=== PATIENT | male | born 1975 | race Caucasian/White ===

== ENCOUNTER 2017-01-07 22:01 | Emergency (ER) | payer OTHER ==
--- NOTE | ~2017-01-07 | ER ---
PATIENT'S NAME: LAWRENCE MCNAIR [facility] AGE: 41 Y [address] ROOM: [place] [address] LOCATION: [facility] ADMIT DATE: 01/07/2017 ER/Outpatient Report DISCHARGE DATE: 01/08/2017 FAMILY PHYSICIAN: PHYSICIAN, NO ATTENDING PHYSICIAN: Murphy Villanueva Admission date and time documented on the medical record. I saw the patient at 2215 hours. CHIEF COMPLAINT: Right flank upper quadrant abdominal pain with diarrhea. HISTORY OF PRESENT ILLNESS: The patient is a 41-year-old male over the past 24 hours has had pain in his right flank, right upper quadrant of the abdomen accompanied with some mild diarrhea. He has had 4 episodes of nonbloody, no nausea or vomiting, no back pain. No chest pain, shortness of breath. No lightheadedness, dizziness, syncope, or near syncope. No fall or trauma. No headache, eyes, ears, nose, throat, neck, or spine pain. No recent colds, coughs, flus, fever, chills, or sweats. No joint or muscle swelling, redness, or pain. No skin eruptions or rash. He does have a history of schizoaffective disorder or depression. He has had some past suicidal ideation. No endocrine problems or neuro changes. HOME MEDICATIONS: See attached medication list. ALLERGIES: NONE. SOCIAL HISTORY: The patient smokes 2 packs of cigarettes per day, nondrinker. PAST MEDICAL HISTORY: Tobacco abuse, hypertension, schizoaffective disorder, MRSA positive, depression, suicidal ideation, remote alcohol abuse. OPERATIONS: None. REVIEW OF SYSTEMS: All systems reviewed by me are negative with the exception of those discussed in the history of present illness. PHYSICAL EXAMINATION: VITAL SIGNS: Temperature 97.9, pulse 76, respirations 18, blood pressure PATIENT'S NAME: LAWRENCE MCNAIR [facility] AGE: 41 Y [address] ROOM: [place] [address] LOCATION: [facility] ADMIT DATE: 01/07/2017 ER/Outpatient Report DISCHARGE DATE: 01/08/2017 FAMILY PHYSICIAN: PHYSICIAN, NO ATTENDING PHYSICIAN: Murphy Villanueva 143/93, O2 saturation on room air is 94%. HEENT: Head: Normocephalic. Eyes, Ears, Nose, and Throat: Clear. NECK: No nuchal rigidity. No findings of adenopathy. No tenderness. SPINE: Negative. LUNGS: Clear. No rales, rhonchi, or wheezes. HEART: Regular. Pulses are palpable. No chest wall or ribcage pain to palpation. ABDOMEN: Tender in the right flank, right upper quadrant area. No true guarding or rigidity. No rebound tenderness. Active bowel tones. No organomegaly or abnormal masses palpable. No CVA tenderness. EXTREMITIES: Intact. NEUROVASCULAR: Intact. SKIN: Clear. No skin eruptions or rash. IMAGING DATA: Three abdominal x-rays show no perforation, obstruction, or acute lung infiltrate. We will review x-ray with the radiologist. LABORATORY DATA: CBC: White count was 10,900, 72 segs, 20 lymphs, 6 monos, 1 eosinophil. Hemoglobin was 14.9 with hematocrit of 45.1, platelet count is 178,000. CMS was normal except for an elevated blood sugar of 138. CRP was elevated at 5.82. Procalcitonin was normal at less than 0.5, lactate was 3.3. Urinalysis showed 2-5 whites, 2-5 reds, 0-2 epithelial cells, moderate bacteria with 1+ mucus. The patient was started on IV normal saline fluids given a liter here in the emergency department. I went ahead with a CT scan of the abdomen and pelvis with IV contrast. CT scan showed acute epiploic appendagitis, distal aspect of the right colon. No other abnormalities were noted. CT scan was read by Radiology, see dictated and transcribed report. IMPRESSION: 1. Right upper quadrant flank pain secondary to acute epiploic appendagitis. 2. Hypertension. 3. Tobacco abuse. 4. Schizoaffective disorder. PLAN: Discussion ensued with the patient concerning my findings and recommendations, he was discharged home. Fluids and diet as tolerated. Continue present home medications and care. [place] as needed for pain, Naprosyn 500 mg b.i.d. with food x10 days. No work until 01/12/2017. Follow up with personal physician as needed. The patient understands and agrees with treatment. PATIENT'S NAME: LAWRENCE MCNAIR [facility] AGE: 41 Y [address] ROOM: [place] [address] LOCATION: [facility] ADMIT DATE: 01/07/2017 ER/Outpatient Report DISCHARGE DATE: 01/08/2017 FAMILY PHYSICIAN: KEERTHI WILLETT ATTENDING PHYSICIAN: Murphy Villanueva MD TORIBIO ESQUEDA/modl /[id number] d: 01/08/17 0208 t: 01/08/17 1902, OUTPATIENT REPORT
[~2017-01-07 22:01] MED LIST: BYSTOLIC10 MG PO; CYMBALTA20 MG PO; CYMBALTA60 MG PO; DESYREL100 MG PO; HYZAAR 50-12.51 TAB PO; LATUDA120 MG PO; LATUDA80 MG PO; NICODERM/HABITR21 MG TRANS; NORVASC5 MG PO; PAXIL10 MG PO; VISTARIL25 MG PO
[2017-01-07 22:29] LABS: BILIRUBIN URINE NEGATIVE (NEGATIVE); BLOOD URINE 25 /UL (NEGATIVE); COLOR URINE YELLOW (YELLOW); GLUCOSE URINE NEGATIVE (NEGATIVE); KETONE URINE 5 mg/dL (NEGATIVE); LEUKOCYTES URINE 25 /UL (NEGATIVE); NITRITE URINE NEGATIVE (NEGATIVE); PROTEIN URINE 15 mg/dL (NEGATIVE); TURBIDITY URINE CLEAR (CLEAR); UROBILINOGEN URINE 1 mg/dL (NORMAL)
[2017-01-07 22:34] LABS: BASOPHIL % 0.2 %; EOSINOPHIL # 0.1 K/uL (0.0-0.5); EOSINOPHIL % 0.8 %; HEMATOCRIT 45.1 % (37.0-53.0); HEMOGLOBIN 14.9 g/dL (12.0-17.0); IMMATURE GRANULOCYTE # 0.1 K/uL (0.0-0.3); IMMATURE GRANULOCYTE % 0.5 %; LYMPHOCYTE # 2.2 K/uL (0.8-4.0); LYMPHOCYTE % 19.9 %; MCH 29.7 pg (27.0-34.0); MONOCYTE # 0.7 K/uL (0.0-1.0); MONOCYTE % 6.3 %; MPV 9.9 fl (9.4-12.4); NEUTROPHIL # (ANC) 7.9 K/uL (1.4-9.0); NEUTROPHIL % 72.3 %; NRBC % 0 /100WBC (0-0.00); PLATELET COUNT 178 K/uL (150-450); RBC 5.01 M/uL (4.00-6.00); RDW-CV 12.9 % (11.9-14.6); WBC 10.9 K/uL (4.0-11.0)
[2017-01-07 22:44] LABS: EPITHELIAL URINE 0-2 #/HPF (NEGATIVE)
[2017-01-07 22:47] LABS: BACTERIA URINE MODERATE (NEGATIVE); MUCUS URINE 1+ (NEGATIVE)
[2017-01-07 22:53] LABS: ALBUMIN 3.4 gm/dL (3.5-5.0); ALK PHOS 128 IU/L (33-138); ALT 16 IU/L (12-78); ANION GAP 13.9 (10.0-19.0); AST 18 IU/L (10-40); BLOOD UREA NITROGEN 8 mg/dL (6-24); CALCIUM 8.5 mg/dL (8.5-10.5); CHLORIDE 105 mMol/L (96-110); CO2 22 mMol/L (22-32); CREATININE 1.1 mg/dL (0.6-1.3); ESTIMATED GFR (MDRD EQUATION) > 60; POTASSIUM 3.9 mMol/L (3.7-5.1); SODIUM 137 mMol/L (135-145); TOTAL BILIRUBIN 0.3 mg/dL (0.0-1.5); TOTAL PROTEIN 7.5 g/dL (6.0-8.4)
== END 2017-01-08 01:01 | disposition disaster alternative care site (69) ==
LOC: GMED 22:01
PROVIDERS: Emergency Medicine
DX: K63.89 Other specified diseases of intestine (principal); I10 Essential (primary) hypertension; F17.210 Nicotine dependence, cigarettes, uncomplicated; F25.9 Schizoaffective disorder, unspecified
CPT/HCPCS: J7030; Q9967